=== PATIENT | female | born 2000 | race Caucasian/White ===

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

== ENCOUNTER 2022-06-29 12:09 | Emergency (ER) | payer BC ==
[~2022-06-29] VITALS: Ht 175.3 cm; Wt 74.8 kg
[2022-06-29 12:56] VITALS: BP_SYST 137
--- NOTE | 2022-06-29 13:01 | NUR ---
PT ADVISED OF WAIT IN LOBBY WITH [facility]. SHE VERBALIZES UNDERSTANDING
--- NOTE | 2022-06-29 16:00 | NUR ---
ER at bedside examining patient.
[2022-06-29 16:45] LABS: BILIRUBIN,URINE NEGATIVE (NEGATIVE); BLOOD, URINE NEGATIVE (NEGATIVE); CLARITY/URINE CLEAR (CLEAR); COLOR,URINE YELLOW (YELLOW); GLUCOSE,URINE NEGATIVE (NEGATIVE); KETONES,URINE NEGATIVE (NEGATIVE); LEUKOCYTE ESTERASE ,URINE NEGATIVE (NEGATIVE); NITRITE, URINE NEGATIVE (NEGATIVE); PROTEIN URINE NEGATIVE (NEGATIVE); UROBILINOGEN,URINE 0.2 (0.2-1.0)
--- NOTE | 2022-06-29 16:45 | NUR ---
PT TO LAB FOR BLOOD WORK
[2022-06-29 16:51] LABS: BASOPHILS # (AUTO) 0.1 K/uL (0.0-0.2); BASOPHILS % (AUTO) 0.7 % (0.0-2.0); EOSINOPHILS # (AUTO) 0.2 K/uL (0.0-0.4); EOSINOPHILS % (AUTO) 2.1 % (0.0-4.0); HEMATOCRIT 39.7 % (36-48); HEMOGLOBIN 13.6 g/dL (12.0-16.0); LYMPHOCYTES # (AUTO) 1.5 K/uL (1.0-5.5); LYMPHOCYTES % (AUTO) 18.3 % (20.5-51.5); MEAN CORPUSCULAR HEMOGLOBIN 31 pg (27-31); MEAN CORPUSCULAR HGB CONC 34 % (32-36); MEAN CORPUSCULAR VOLUME 90 fL (79.0-98.0); MONOCYTES # (AUTO) 0.6 K/uL (0.0-1.0); MONOCYTES % (AUTO) 6.9 % (1.7-9.3); PLATELET COUNT (AUTO) 222 K/uL (130-430); RED BLOOD CELL COUNT(AUTO) 4.42 MIL/uL (4.2-6.2); RED CELL DISTRIBUTION WIDTH 13.5 % (9.0-15.0); WHITE BLOOD COUNT (AUTO) 8.3 K/uL (4.5-11.0)
[2022-06-29 17:08] LABS: CALCIUM 9.2 mg/dL (8.4-11.0); CREATININE 0.91 mg/dL (0.55-1.30)
[2022-06-29 17:19] LABS: TOTAL BILIRUBIN 0.3 mg/dL (0.0-1.0)
[2022-06-29 18:14] VITALS: BP_SYST 128
--- NOTE | 2022-06-29 18:16 | NUR ---
Patient given written and verbal discharge instructions and verbalizes understanding. ER MD discussed with patient the results and treatment provided. Patient in stable condition. ID arm band removed. Patient educated on pain management and to follow up with PMD. Pain Scale 0. Opportunity for questions provided and answered. Medication side effect fact sheet provided.
== END 2022-06-29 18:14 | disposition home or self-care (01) ==
LOC: SED 12:09
DX: F41.9 Anxiety disorder, unspecified (principal); R53.83 Other fatigue; R42 Dizziness and giddiness; Z88.1 Allergy status to other antibiotic agents; Z79.899 Other long term (current) drug therapy; Z20.822 Contact with and (suspected) exposure to COVID-19
CPT/HCPCS: 36415; 80053; 81003; 81025; 85025; 86308-TC; 99283

== ENCOUNTER 2024-05-04 00:03 | Emergency (ER) | payer BC ==
[~2024-05-04] VITALS: Ht 175.3 cm; Wt 68.0 kg
[2024-05-04 00:27] VITALS: BP_SYST 123; PULSE 62; RESP 16; TEMP 98.3; O2SAT 100
[2024-05-04 01:09] VITALS: BP_SYST 123; PULSE 62; RESP 16; TEMP 98.3; O2SAT 100
== END 2024-05-04 01:09 | disposition home or self-care (01) ==
LOC: SED 00:03
DX: F32.A Depression, unspecified (principal); Z88.1 Allergy status to other antibiotic agents
CPT/HCPCS: 99281